=== PATIENT | male | born 1945 | race Caucasian/White ===

== ENCOUNTER 2017-08-14 10:26 | Day surgery (SDC) | payer OTHER, MEDICARE ==
[2017-08-09 08:54] VITALS: BMI 29.8
[~2017-08-14 10:26] MED LIST: ACETAMINOPHEN 325 MG TABLET (FP) PO PRN; CHONDROITIN SU A/HYALUR SOD 1 KIT IO ONE; CIPROFLOXACIN HCL 0.3% OPHTH 2.5ML BOTTLE OP SCH; EPINEPHrine/PF 1 MG/1 ML (1:1,000) AMPULE IV ONE; LIDOCAINE HCL 1% PRESERVATIVE FREE - 30ML VIAL IO ONE; TETRACAINE 0.5% OPHTH SOLN 2 ML BOTTLE TP ONE
[2017-08-14] MEDS ORDERED: FLURBIPROFEN 0.03% OPHTH SOLN 2.5 ML BOTTLE ONE (10:48)
[2017-08-14] MEDS ORDERED: PHENYLEPHRINE 2.5% OPHTH SOLN 15 ML BOTTLE ONE (10:48)
[2017-08-14] MEDS ORDERED: CYCLOPENTOLATE HCL 1% OPHTH SOLN 2 ML BOTTLE ONE (10:48)
[2017-08-14] MEDS ORDERED: TROPICAMIDE 1% OPHTH SOLN 15 ML BOTTLE ONE (10:48)
[2017-08-14] MEDS ORDERED: CIPROFLOXACIN 0.3% EYE DROPS 5 ML BOTTLE ONE (10:48)
[2017-08-14] MEDS ORDERED: TROPICAMIDE 0.5% OPHTHALMIC SOLN 15 ML BOTTLE ONE (10:54)
[2017-08-14] MEDS: FLURBIPROFEN 0.03% OPHTH SOLN 2.5 ML BOTTLE OP SCH ×2 (10:55→11:00)
[2017-08-14] MEDS: PHENYLEPHRINE 2.5% OPHTH SOLN 15 ML BOTTLE OP SCH ×2 (10:55→11:00)
[2017-08-14] MEDS: TROPICAMIDE 1% OPHTH SOLN 15 ML BOTTLE OP SCH ×2 (10:55→11:00)
[2017-08-14] MEDS: CYCLOPENTOLATE HCL 1% OPHTH SOLN 2 ML BOTTLE OP SCH ×2 (10:55→11:00)
[2017-08-14 11:26] VITALS: TEMP 97.5
[2017-08-14] MEDS ORDERED: MIDAZOLAM HCL 2 MG/2 ML SINGLE DOSE VIAL ONE (11:48)
[2017-08-14] MEDS ORDERED: TETRACAINE 0.5% OPHTH SOLN 2 ML BOTTLE TP ONE (11:53)
[2017-08-14] MEDS ORDERED: LIDOCAINE HCL 1% PRESERVATIVE FREE - 30ML VIAL IO ONE (12:03)
[2017-08-14] MEDS ORDERED: CHONDROITIN SU A/HYALUR SOD 1 KIT IO ONE (12:03)
[2017-08-14] MEDS ORDERED: EPINEPHrine/PF 1 MG/1 ML (1:1,000) AMPULE IV ONE (12:10)
[2017-08-14] MEDS ORDERED: CHONDROITIN SU A/HYALUR SOD 1 KIT ONE (12:31)
[2017-08-14 14:15] VITALS: BP 123/74; PULSE 86
--- NOTE | 2017-08-14 14:55 | SPEC ---
DATE OF OPERATION: 08/14/2017 OPERATION: Phacoemulsification of right cataract with posterior chamber intraocular lens implantation, right eye. Lens used: SN60WF, 21.0 diopter power, serial no. [id number]. PREOPERATIVE DIAGNOSIS: Cataract, right eye. POSTOPERATIVE DIAGNOSIS: Cataract, right eye. SURGEON: Anayeli Saavedra M.D. ANESTHESIA: Topical MAC. COMPLICATIONS: None. PROCEDURE: The patient was brought to the operating room and correctly identified along with the operative site and the correct intraocular lens cardenas. The patient was then prepped and draped in the usual sterile fashion including 5% Betadine solution in the conjunctival sac and an eyelid drape. An eyelid speculum was then placed in the eye. A paracentesis port was created and approximately 0.5 mL of preservative-free lidocaine was then injected into the eye. Viscoelastic was then injected to inflate the anterior chamber. A temporal clear corneal wound was created. A continuous circular capsulorrhexis was performed. The nucleus was then hydrodissected with BSS and removed with phacoemulsification. The remaining cortical material was irrigated and aspirated. Viscoelastic was injected to inflate the capsular bag and the intraocular lens was then implanted into the capsular bag. The remaining Viscoelastic was irrigated and aspirated from the eye. The IOL was noted to be well centered and completely covered by the anterior capsulorrhexis. Topical vancomycin was placed and the eye patched and shielded. All wounds were tested and found to be watertight. No suture was placed. The eye was then shielded. The patient was then discharged from the operating room in stable condition. ANAYELI SAAVEDRA M.D. [id number]
[2017-08-14] MEDS ORDERED: ACETAMINOPHEN 325 MG TABLET (FP) PO PRN (15:50)
[2017-08-14] MEDS ORDERED: ONDANSETRON 4 MG/2 ML VIAL IVPUSH PRN (15:50)
[2017-08-14] MEDS ORDERED: LACTATED RINGERS SOLUTION 1,000 ML IV SCH (16:30)
== END 2017-08-14 14:43 | disposition home or self-care (01) ==
LOC: JASU-SURG 10:26
PROVIDERS: ATTEND Ophthalmology
PROC: 08RJ3JZ Replacement of Right Lens with Synthetic Substitute, Percutaneous Approach (ICD-10-PCS; principal; 2017-08-14 12:00)
DX: H26.9 Unspecified cataract (principal)

== ENCOUNTER 2017-08-28 10:32 | Day surgery (SDC) | payer OTHER, MEDICARE ==
[2017-08-27 15:25] VITALS: BMI 30.5
[~2017-08-28 10:32] MED LIST changes: -EPINEPHrine/PF 1 MG/1 ML (1:1,000) AMPULE IV ONE; +EPINEPHrine/PF 1 MG/1 ML (1:1,000) AMPULE SQ ONE
[2017-08-28] MEDS ORDERED: FLURBIPROFEN 0.03% OPHTH SOLN 2.5 ML BOTTLE ONE (10:42)
[2017-08-28] MEDS ORDERED: PHENYLEPHRINE 2.5% OPHTH SOLN 15 ML BOTTLE ONE (10:42)
[2017-08-28] MEDS ORDERED: CYCLOPENTOLATE HCL 1% OPHTH SOLN 2 ML BOTTLE ONE (10:42)
[2017-08-28] MEDS ORDERED: TROPICAMIDE 1% OPHTH SOLN 15 ML BOTTLE ONE (10:42)
[2017-08-28] MEDS ORDERED: OFLOXACIN 0.3% OPHTHALMIC SOLUTION 5 ML BOTTLE ONE (10:42)
[2017-08-28] MEDS: PHENYLEPHRINE 2.5% OPHTH SOLN 15 ML BOTTLE OP SCH ×3 (11:00→11:10)
[2017-08-28] MEDS: OFLOXACIN 0.3% OPHTHALMIC SOLUTION 5 ML BOTTLE OP SCH ×3 (11:00→11:10)
[2017-08-28] MEDS: TROPICAMIDE 1% OPHTH SOLN 15 ML BOTTLE OP SCH ×3 (11:00→11:10)
[2017-08-28] MEDS: FLURBIPROFEN 0.03% OPHTH SOLN 2.5 ML BOTTLE OP SCH ×3 (11:00→11:10)
[2017-08-28] MEDS: CYCLOPENTOLATE HCL 1% OPHTH SOLN 2 ML BOTTLE OP SCH ×3 (11:00→11:10)
[2017-08-28] MEDS ORDERED: CHONDROITIN SU A/HYALUR SOD 1 KIT ONE (11:57)
[2017-08-28] MEDS ORDERED: TETRACAINE 0.5% OPHTH SOLN 2 ML BOTTLE TP ONE (11:58)
[2017-08-28] MEDS ORDERED: POVIDONE-IODINE 5% OPHTHALMIC PREP 30 ML SOLUTION OS ONE (12:00)
[2017-08-28] MEDS ORDERED: LIDOCAINE HCL 1% PRESERVATIVE FREE - 30ML VIAL IO ONE (12:10)
[2017-08-28] MEDS ORDERED: BSS (NA/CA/MG/K) BALANCED SALT SOLUTION OPHTH SOLN 15 ML BOTTLE IO ONE ×2 (12:10→12:15)
[2017-08-28] MEDS ORDERED: CHONDROITIN SU A/HYALUR SOD 1 KIT IO ONE (12:12)
[2017-08-28] MEDS ORDERED: EPINEPHrine/PF 1 MG/1 ML (1:1,000) AMPULE SQ ONE (12:15)
[2017-08-28] MEDS ORDERED: POVIDONE-IODINE 5% OPHTHALMIC PREP 30 ML SOLUTION ONE (13:23)
[2017-08-28] MEDS ORDERED: BSS (NA/CA/MG/K) BALANCED SALT SOLUTION OPHTH SOLN 15 ML BOTTLE ONE (13:23)
[2017-08-28] MEDS ORDERED: LIDOCAINE HCL/PF 1% SDV 5ML VIAL ONE (13:23)
[2017-08-28] MEDS ORDERED: VANCOMYCIN 500 MG VIAL (RESTRICTED TO ID ONLY) ONE (13:23)
[2017-08-28] MEDS ORDERED: EPINEPHrine/PF 1 MG/1 ML (1:1,000) AMPULE ONE (13:23)
[2017-08-28 13:33] VITALS: PULSE 50; TEMP 98.2
[2017-08-28 13:35] VITALS: BP 125/85
--- NOTE | 2017-08-28 13:39 | SPEC ---
DATE OF SURGERY: 08/28/2017 OPERATION: Phacoemulsification with posterior chamber intraocular lens implantation, left eye. Lens used SN60WF, 20.0-Diopter power, Serial No. [id number]. PREOPERATIVE DIAGNOSIS: Cataract, left eye. POSTOPERATIVE DIAGNOSIS: Cataract, left eye. SURGEON: Anayeli Saavedra M.D. ANESTHESIA: Topical MAC. COMPLICATIONS: None. PROCEDURE: The patient was brought to the operating room and correctly identified along with the operative site and the correct intraocular lens cardenas. The patient was then prepped and draped in the usual sterile fashion including 5% Betadine solution in the conjunctival sac and an eyelid drape. An eyelid speculum was then placed in the eye. A paracentesis port was created and approximately 0.5 mL of preservative free Lidocaine was then injected into the eye. Viscoelastic was then injected to inflate the anterior chamber. A temporal clear corneal wound was created. A continuous circular capsulorrhexis was performed. The nucleus was then hydrodissected with BSS and removed with phacoemulsification. The remaining cortical material was irrigated and aspirated. Viscoelastic was injected to inflate the capsular bag and the intraocular lens was then implanted into the capsular bag. The remaining Viscoelastic was irrigated and aspirated from the eye. The IOL was noted to be well centered and completely covered by the anterior capsulorrhexis. Topical vancomycin was placed and the eye patched and shielded. All wounds were tested and found to be watertight. No suture was placed. The eye was then shielded. The patient was then discharged from the operating room in stable condition. ANAYELI SAAVEDRA M.D. [id number]
== END 2017-08-28 13:40 | disposition home or self-care (01) ==
LOC: JASU-SURG 10:32
PROVIDERS: ATTEND Ophthalmology
PROC: 08RK3JZ Replacement of Left Lens with Synthetic Substitute, Percutaneous Approach (ICD-10-PCS; principal; 2017-08-28 13:00)
DX: H26.9 Unspecified cataract (principal)

== ENCOUNTER 2018-05-19 06:16 | Day surgery (SDC) | payer OTHER, MEDICARE ==
[2018-05-16 11:30] VITALS: BMI 30.5
[2018-05-19] MEDS ORDERED: PROPOFOL 20 ML ONE ×3 (08:17→08:45)
[2018-05-19] MEDS ORDERED: MIDAZOLAM HCL 2 MG/2 ML SINGLE DOSE VIAL ONE (08:17)
[2018-05-19] MEDS ORDERED: oxyCODONE HCL 5 MG TABLET PO PRN ×2 (08:25)
[2018-05-19] MEDS ORDERED: ONDANSETRON 4 MG/2 ML VIAL IVPUSH PRN (08:25)
[2018-05-19] MEDS ORDERED: LACTATED RINGERS SOLUTION 1,000 ML IV SCH (08:30)
--- NOTE | 2018-05-19 09:15 | OP ---
Operative Note - Note: Operative Date: 05/19/18 Pre-Operative Diagnosis: bladder stone Operation: cystoscopy/laser lithotripsy of bladder stone Findings: 5+ cm bladder stone at bladder neck affixed to urolift metallic stitch Post-Operative Diagnosis: Same as Pre-op Anesthesia: General Specimens Removed: bladder stone framents Drains & Tubes with Location: 16 sammar[address] brown Operative Report Dictated: Yes
[2018-05-19 10:48] VITALS: PULSE 53
[2018-05-19] MEDS ORDERED: oxyCODONE HCL 5 MG TABLET ONE (10:55)
[2018-05-19 12:50] VITALS: BP 141/86; TEMP 97.4
--- NOTE | 2018-05-19 20:13 | OP ---
DATE OF OPERATION: 05/19/2018 PREOPERATIVE DIAGNOSIS: Bladder stone. POSTOPERATIVE DIAGNOSIS: Bladder stone. PROCEDURE: Cystoscopy and laser lithotripsy of bladder stone. ATTENDING: Ramona Lozano MD ANESTHESIA: General. DESCRIPTION OF OPERATION: Patient has a history of benign prostatic hypertrophy and was treated by an area urologist with an UroLift procedure. In an office cystoscopy, a 6-cgol-bvkyuusegd stone was noted emanating from the UroLift stitch. The stone was noted at the bladder neck. Patient understood all risks and benefits. Patient was brought in the operating room, placed in supine position on the operating room table. Anesthesia and preoperative antibiotics were administered. The patient was then placed in dorsal lithotomy position and prepped and draped in the usual sterile manner. Cystoscopy was performed, and a 0-jril-ixjbepvmaa stone was noted at the bladder neck, attached to the UroLift metallic stitch. The stone was affixed to the left inferior aspect of the bladder neck at approximately 4 o'clock, extending to 7 o'clock. A holmium laser was utilized, and lithotripsy of the stone was performed. Multiple fragments were removed through an Ellik evacuator. All specimens were sent for pathologic evaluation. The UroLift stitch was not cut. It remains in position. The patient understands he has a risk of recurrence of the stone due to the UroLift. The patient was left with a 16-Djiboutian catheter to straight drainage. The patient was then sent to recovery room for evaluation. No complications were noted. The patient tolerated the procedure very well. RAMONA LOZANO M.D. /[id number]
--- NOTE | 2018-05-20 10:01 | PATH ---
Surgical Pathology Report Patient Name: EMILIANO ESCOBAR [facility]. Rec. #: [id number] /Age/Gender: 1945 (Age: 72) / M Account: [id number] Location: [facility] Taken: 05/19/2018 Received: 05/19/2018 Reported: 05/20/2018 Physicians: Richmond Bennett Specimen(s) Received BLADDER STONE Clinical History Bladder stone Final Diagnosis BLADDER STONE, LASER LITHOTRIPSY: BLADDER CALCULI. MACROSCOPIC DIAGNOSIS Electronically Signed Gisel Mcdowell M.D. Gross Description Received in saline labeled "bladder stone," is a 2.3 x 1.2 x 0.3 cm aggregate of bates-brown, irregular to fragmented calculi. The specimen is sent for chemical analysis. /05/19/201805/19/2018
[2018-05-26 10:14] LABS: CA OXALATE MONOHYDR. 60 % (.); CALCIUM PHOSPHATE 10 % (.)
== END 2018-05-19 12:40 | disposition home or self-care (01) ==
LOC: JASU-SURG 06:16
PROVIDERS: ATTEND Urology
PROC: 0TCB8ZZ Extirpation of Matter from Bladder, Via Natural or Artificial Opening Endoscopic (ICD-10-PCS; principal; 2018-05-19 08:00)
DX: N21.0 Calculus in bladder (principal)
CPT/HCPCS: 36415; 82360; 88300-TC; 94760